=== PATIENT | female | born 1950 | race Caucasian/White ===

== ENCOUNTER → 2017-05-28 | Emergency (ER) | payer OTHER ==
[~2017-05-28] VITALS: Ht 157.5 cm; Wt 77.1 kg
[~2017-05-28] MED LIST: CALCITRIOL0.5 MCG; CAPOTEN50 MG; CATAFLAM50 MG PO; HUMULIN 70/30 V10 ML; HYDROCHLOROTH12.5 M1; LANTUS100 U/ML; ORPH100T PO; PENTOPAK400 MG; PRINIVIL10 MG; SEPTRA DS TABLE1 TAB PO; SIMVASTATIN5 MG
== END | disposition home or self-care (01) ==
LOC: ER 12:12
DX: M54.5 Low back pain (principal)

== ENCOUNTER 2017-10-04 09:21 | Emergency (ER) | payer OTHER ==
[~2017-10-04] VITALS: Ht 149.9 cm; Wt 79.8 kg
[2017-10-04] MEDS ORDERED: VITAMIN D32000 UNIT (09:45)
[2017-10-04] MEDS ORDERED: ASPIR 8181 MG (09:45)
[2017-10-04] MEDS ORDERED: HUMALOG JU100 UNIT/1 (09:45)
[2017-10-04] MEDS ORDERED: LOSARTAN-HCTZ1 EAC1 (09:46)
[2017-10-04] MEDS ORDERED: NORVASC10 MG (09:46)
== END 2017-10-04 13:08 | disposition home or self-care (01) ==
LOC: ER 09:21
DX: R42 Dizziness and giddiness (principal)

== ENCOUNTER 2018-09-09 10:23 | Emergency (ER) | payer OTHER ==
[~2018-09-09] VITALS: Ht 149.9 cm; Wt 77.1 kg
[~2018-09-09 10:23] MED LIST changes: +ASPIR 8181 MG; +HUMALOG JU100 UNIT/1; +LOSARTAN-HCTZ1 EAC1; +NORVASC10 MG; +VITAMIN D32000 UNIT
== END 2018-09-09 11:58 | disposition home or self-care (01) ==
LOC: ER 10:23
DX: D22.72 Melanocytic nevi of left lower limb, including hip (principal)

== ENCOUNTER 2022-11-06 10:11 | Emergency (ER) | payer OTHER ==
[~2022-11-06] VITALS: Ht 152.4 cm; Wt 86.2 kg
== END 2022-11-06 13:48 | disposition home or self-care (01) ==
LOC: ER 10:11
DX: M54.9 Dorsalgia, unspecified (principal); E11.40 Type 2 diabetes mellitus with diabetic neuropathy, unspecified; Z79.4 Long term (current) use of insulin

== ENCOUNTER 2023-12-11 19:54 | Emergency (ER) | payer OTHER ==
[~2023-12-11] VITALS: Ht 149.9 cm; Wt 83.9 kg
[2023-12-11] MEDS ORDERED: ORPHENADRINE CITRATE 30 MG/ML AMPUL IM STA (21:58)
[2023-12-11] MEDS ORDERED: KETOROLAC TROMETHAMINE 30 MG VIAL IM STA (21:59)
[2023-12-11] MEDS ORDERED: ZANAFLEX4 MG PO (22:02)
[2023-12-11] MEDS ORDERED: DICLOFENAC POTA50 MG PO (22:02)
[2023-12-11] MEDS ORDERED: ORPHENADRINE CITRATE 30 MG/ML AMPUL ONE (22:14)
[2023-12-11] MEDS ORDERED: KETOROLAC TROMETHAMINE 30 MG VIAL ONE (22:14)
== END 2023-12-11 22:34 | disposition home or self-care (01) ==
LOC: ER 19:56
DX: M54.50 Low back pain, unspecified (principal)
CPT/HCPCS: 96372; 99282; J1885; J2360

== ENCOUNTER 2024-02-11 12:11 | Emergency (ER) | payer OTHER ==
[~2024-02-11] VITALS: Ht 152.4 cm; Wt 76.2 kg
[~2024-02-11 12:11] MED LIST changes: +DICLOFENAC POTA50 MG PO; +ZANAFLEX4 MG PO
[2024-02-11] MEDS ORDERED: FOLIC ACID1 MG PO (12:34)
[2024-02-11] MEDS ORDERED: LANTUS SOL100 UNIT/1 SQ (12:34)
[2024-02-11] MEDS ORDERED: ONDANSETRON HCL 2 MG/ML VIAL IV STA (13:04)
[2024-02-11] MEDS ORDERED: 0.9 % SODIUM CHLORIDE 1,000 ML IV SCH (13:15)
[2024-02-11 14:41] LABS: HEMOGLOBIN 10.7 g/dL (12.0-15.00); MEAN CELL VOLUME 83.2 fL (80.00-100.00); MEAN CORPUSCULAR HEMOGLOBIN 26.9 pg (27.00-32.0); MEAN CORPUSCULAR HGB CONC 32.3 g/dl (32.0-36.0); PLATELET COUNT 182 K/uL (150-450); RED BLOOD COUNT 3.97 M/uL (4.00-6.00)
[2024-02-11 15:07] LABS: CALCIUM 9.2 mg/dL (8.5-10.1); CREATININE SERUM 1.16 mg/dL (0.55-1.02); GFR 45.79; POTASSIUM 3.88 mEq/L (3.5-5.1)
[2024-02-11 15:31] LABS: URINE APPEARANCE Clear; URINE BILIRRUBIN Negative (NEGATIVE); URINE BLOOD Small; URINE COLOR Yellow; URINE KETONE 15 (NEGATIVE); URINE LEUKOCYTE Trace; URINE NITRATE Negative; URINE PROTEIN Trace (NEGATIVE); URINE UROBILINOGEN 0.2 E.U./dl
[2024-02-11 15:35] LABS: URINE EPITHELIAL CELLS 28.2 uL (0.0-38.8); URINE RBC 15.2 uL (0.0-20.8); URINE WBC 44.2 uL (0.0-23.2)
[2024-02-11 15:38] LABS: URINE CAST 0.15 uL (0.0-1.40); URINE GLUCOSE 250 MG/DL (NEGATIVE)
[2024-02-11] MEDS ORDERED: KETOROLAC TROMETHAMINE 30 MG VIAL IV ONE (15:45)
[2024-02-11] MEDS ORDERED: BACTRIM DS TAB1 EACH PO (18:29)
[2024-02-11] MEDS ORDERED: CEFTRIAXONE SODIUM 1,000 MG VIAL IV ONE (18:30)
[2024-02-11] MEDS ORDERED: PEPCID AC20 MG PO (18:30)
== END 2024-02-11 18:42 | disposition home or self-care (01) ==
LOC: ER 12:11
PROVIDERS: Emergency Medicine
DX: K29.70 Gastritis, unspecified, without bleeding (principal); R11.10 Vomiting, unspecified; Z20.822 Contact with and (suspected) exposure to COVID-19; I10 Essential (primary) hypertension; E11.9 Type 2 diabetes mellitus without complications; Z79.4 Long term (current) use of insulin
CPT/HCPCS: 36415; 74176; 96365; 96366; 99284; J0696; J1885; J2405; J7030